=== PATIENT | male | born 1965 | race Caucasian/White ===

== ENCOUNTER 2016-07-18 09:28 | Emergency (ER) | payer MEDICAID ==
[~2016-07-18] VITALS: Ht 180.3 cm; Wt 100.0 kg
[~2016-07-18 09:28] MED LIST: ARIP15TA3 PO; BUPR-93 PO
[2016-07-18] MEDS ORDERED: METHOCARBAMOL 500 MG TABLET PO ONE (12:00)
[2016-07-18] MEDS ORDERED: KETOROLAC TROMETHAMINE 60 MG/2 ML VIAL IM ONE (12:00)
[2016-07-18 12:17] VITALS: BP 133/71
== END 2016-07-18 12:49 | disposition home or self-care (01) ==
LOC: EMS 09:29
DX: S39.012A Strain of muscle, fascia and tendon of lower back, initial encounter (principal); F17.210 Nicotine dependence, cigarettes, uncomplicated; X58.XXXA Exposure to other specified factors, initial encounter; Y93.89 Activity, other specified; Y92.89 Other specified places as the place of occurrence of the external cause; Y99.8 Other external cause status
CPT/HCPCS: 96372; 99283; J1885

== ENCOUNTER 2016-12-04 21:24 | Emergency (ER) | payer MEDICAID ==
[~2016-12-04] VITALS: Ht 182.9 cm; Wt 90.0 kg
[2016-12-05 02:47] LABS: BASOPHILS % (AUTO) 0.5 % (0.0-2.0); EOSINOPHILS % (AUTO) 4.9 % (1.0-6.0); HEMATOCRIT 43.9 % (41-53); LYMPHOCYTES # (AUTO) 2.9 K/uL (1.0-4.8); LYMPHOCYTES % (AUTO) 41.5 % (22.0-44.0); MEAN CORPUSCULAR HGB CONC 34.2 G/dL (31.0-37.0); MEAN CORPUSCULAR VOLUME 93 fL (80-100); MONOCYTES # (AUTO) 0.7 K/uL (0.1-1.0); MONOCYTES % (AUTO) 9.5 % (2.0-9.0); NEUTROPHILS # (AUTO) 3.1 K/uL (1.8-7.7); NEUTROPHILS % (AUTO) 43.6 % (40.0-70.0); PLATELET COUNT (AUTO) 193 K/uL (150-450); RED CELL DISTRIBUTION WIDTH 12.9 % (11.5-14.5); WHITE BLOOD COUNT (AUTO) 7.1 K/uL (4.5-11.0)
[2016-12-05 02:55] LABS: ANION GAP 8 mmol/L (8-16); CALCIUM, TOTAL 8.4 mg/dL (8.8-10.5); CARBON DIOXIDE 29 mmol/L (22-29); CHLORIDE 107 mmol/L (98-107); CREATININE 1.19 mg/dL (0.60-1.30); GLOMERULAR FILTR. RATE CALC > 60 mL/min (>60); POTASSIUM 4.1 mmol/L (3.5-5.1); SODIUM SERUM 144 mmol/L (136-145); UREA NITROGEN, BLOOD 14 mg/dL (7-18)
[2016-12-05 03:00] LABS: ALANINE AMINOTRANSFERASE 37 U/L (12-78); ALBUMIN 3.3 g/dL (3.4-5.0); ASPARTATE AMINOTRANSFERASE 33 U/L (15-37); BILIRUBIN,TOTAL 0.2 mg/dL (0.1-1.0); TOTAL PROTEIN, SERUM 6.2 g/dL (6.4-8.2)
[2016-12-05 03:11] VITALS: BP 124/63
== END 2016-12-05 03:45 | disposition left against medical advice (07) ==
LOC: EMS 21:38
DX: F31.9 Bipolar disorder, unspecified (principal); F20.9 Schizophrenia, unspecified; F17.210 Nicotine dependence, cigarettes, uncomplicated; Z53.21 Procedure and treatment not carried out due to patient leaving prior to being seen by health care provider
CPT/HCPCS: 36415; 80053; 85025; G0480

== ENCOUNTER 2016-12-05 04:31 | Inpatient (IN) | payer MEDICAID ==
[~2016-12-05] VITALS: Ht 180.3 cm; Wt 90.0 kg
[2016-12-05] MEDS ORDERED: PERTUSS(ACELL),DIPH,TET VAC/PF 0.5 ML VIAL IM ONE (08:00)
[2016-12-05] MEDS ORDERED: HALOPERIDOL 5 MG TABLET PO PRN (10:15)
[2016-12-05] MEDS: ARIPiprazole 15 MG TABLET PO SCH (11:11)
[2016-12-05] MEDS: BuPROPion HCL XL 150 MG ER TABLET PO SCH (11:11)
[2016-12-05 16:10] VITALS: BP 117/81
[2016-12-05] MEDS: LORazepam 2 MG TABLET PO PRN (17:11)
[2016-12-05 19:22] VITALS: BP 113/50
[2016-12-06 03:36] VITALS: BP 113/60
[2016-12-06 06:10] LABS: CHOL/HDL RATIO 4.9 (4.2-7.3)
[2016-12-06] MEDS: ARIPiprazole 15 MG TABLET PO SCH (09:05)
[2016-12-06] MEDS: BuPROPion HCL XL 150 MG ER TABLET PO SCH (09:06)
[2016-12-06] MEDS ORDERED: ALBUTEROL SULFATE HFA 90 MCG/PUFF 8 GM INHALER IH PRN (09:15)
[2016-12-06] MEDS ORDERED: ONDANSETRON HCL 4 MG TABLET PO PRN (09:15)
[2016-12-06] MEDS ORDERED: IBUPROFEN 600 MG TABLET PO PRN (09:15)
[2016-12-06] MEDS ORDERED: CloNIDine HCL 0.1 MG TABLET PO PRN (09:15)
[2016-12-06] MEDS ORDERED: LOPERAMIDE HCL 2 MG CAPSULE PO PRN (09:15)
[2016-12-06] MEDS ORDERED: BACITRACIN 28.4 GM OINTMENT TP PRN (09:15)
[2016-12-06] MEDS ORDERED: BENZOCAINE/MENTHOL LOZENGE MM PRN (09:15)
[2016-12-06] MEDS ORDERED: MAGNESIUM HYDROXIDE SUSPENSION 30 ML UDCUP PO PRN (09:15)
[2016-12-06] MEDS ORDERED: PETROLATUM,WHITE 71 GM JELLY TP PRN (09:15)
[2016-12-06] MEDS ORDERED: MAG HYDROX/AL HYDROX/SIMETH ES 30 ML SUSPENSION UDCUP PO PRN (09:15)
[2016-12-06] MEDS ORDERED: ACETAMINOPHEN 325 MG TABLET PO PRN (09:15)
[2016-12-06] MEDS: LORazepam 2 MG TABLET PO PRN (15:08)
[2016-12-06 23:35] VITALS: BP 125/63
[2016-12-07] MEDS: ZOLPIDEM TARTRATE 10 MG TABLET PO PRN ×2 (00:02→20:26)
[2016-12-07] MEDS: LORazepam 2 MG TABLET PO PRN ×2 (00:02→17:10)
[2016-12-07] MEDS: ARIPiprazole 15 MG TABLET PO SCH (08:55)
[2016-12-07] MEDS: NICOTINE 21 MG/24 HOUR PATCH TD SCH (08:55)
[2016-12-07] MEDS: BuPROPion HCL 150 MG SR TABLET PO SCH (08:55)
[2016-12-07 09:14] VITALS: BP 125/71
[2016-12-07 22:00] VITALS: BP 123/61
[2016-12-08 01:35] VITALS: BP 109/73
[2016-12-08 03:55] VITALS: BP 112/64
[2016-12-08] MEDS: LORazepam 2 MG TABLET PO PRN ×2 (03:56→17:32)
[2016-12-08 08:40] VITALS: BP 105/60
[2016-12-08] MEDS: NICOTINE 21 MG/24 HOUR PATCH TD SCH (08:48)
[2016-12-08] MEDS: ARIPiprazole 15 MG TABLET PO SCH (08:48)
[2016-12-08] MEDS: BuPROPion HCL 150 MG SR TABLET PO SCH (08:48)
[2016-12-08 16:13] VITALS: BP 115/80
[2016-12-08] MEDS: ZOLPIDEM TARTRATE 10 MG TABLET PO PRN (21:16)
[2016-12-09 06:31] VITALS: BP 126/69
[2016-12-09] MEDS: ARIPiprazole 15 MG TABLET PO SCH (08:46)
[2016-12-09] MEDS: BuPROPion HCL 150 MG SR TABLET PO SCH (08:46)
[2016-12-09] MEDS: NICOTINE 21 MG/24 HOUR PATCH TD SCH (08:47)
[2016-12-09 08:48] VITALS: BP 109/62
[2016-12-09] MEDS: LORazepam 2 MG TABLET PO PRN ×2 (08:57→18:57)
[2016-12-09 17:13] VITALS: BP 110/64
[2016-12-09] MEDS: ZOLPIDEM TARTRATE 10 MG TABLET PO PRN (20:34)
[2016-12-10 00:43] VITALS: BP 108/61
[2016-12-10] MEDS: NICOTINE 21 MG/24 HOUR PATCH TD SCH (09:09)
[2016-12-10] MEDS: BuPROPion HCL 150 MG SR TABLET PO SCH (09:09)
[2016-12-10] MEDS: ARIPiprazole 15 MG TABLET PO SCH (09:09)
[2016-12-10 09:33] VITALS: BP 131/82
[2016-12-10] MEDS: LORazepam 2 MG TABLET PO PRN (14:07)
[2016-12-10 16:16] VITALS: BP 115/80
[2016-12-10] MEDS: ZOLPIDEM TARTRATE 10 MG TABLET PO PRN (20:43)
[2016-12-11 00:11] VITALS: BP 110/62
[2016-12-11] MEDS: LORazepam 2 MG TABLET PO PRN ×2 (01:50→09:04)
[2016-12-11 08:45] VITALS: BP 110/62
[2016-12-11] MEDS: ARIPiprazole 15 MG TABLET PO SCH (09:03)
[2016-12-11] MEDS: NICOTINE 21 MG/24 HOUR PATCH TD SCH (09:03)
[2016-12-11] MEDS: BuPROPion HCL 150 MG SR TABLET PO SCH (09:03)
[2016-12-11] MEDS ORDERED: BUPR150SR PO (12:16)
[2016-12-11] MEDS ORDERED: ARIP10TA14 PO (12:16)
== END 2016-12-11 14:08 | disposition home or self-care (01) | DRG 750 ==
LOC: EMS 04:32 → AHU 13:30 → B2S 12-06 15:49
PROVIDERS: ADMIT Psychiatry & Neurology Psychiatry; ATTEND Psychiatry & Neurology Psychiatry
PROC: 3E0234Z Introduction of Serum, Toxoid and Vaccine into Muscle, Percutaneous Approach (ICD-10-PCS; principal; 2016-12-05)
DX: F25.0 Schizoaffective disorder, bipolar type (principal); J44.9 Chronic obstructive pulmonary disease, unspecified; R45.851 Suicidal ideations; F15.10 Other stimulant abuse, uncomplicated; F17.210 Nicotine dependence, cigarettes, uncomplicated; G47.00 Insomnia, unspecified; K59.00 Constipation, unspecified; F60.3 Borderline personality disorder; F31.9 Bipolar disorder, unspecified; X78.8XXA Intentional self-harm by other sharp object, initial encounter; Z62.819 Personal history of unspecified abuse in childhood; S61.512A Laceration without foreign body of left wrist, initial encounter; S61.511A Laceration without foreign body of right wrist, initial encounter; Z71.6 Tobacco abuse counseling; Z71.51 Drug abuse counseling and surveillance of drug abuser; Z59.0 Homelessness; Z91.19 Patient's noncompliance with other medical treatment and regimen; Z91.5 Personal history of self-harm; Z79.899 Other long term (current) drug therapy; Z72.89 Other problems related to lifestyle; Z71.41 Alcohol abuse counseling and surveillance of alcoholic; Z81.1 Family history of alcohol abuse and dependence; Z63.8 Other specified problems related to primary support group; Z98.890 Other specified postprocedural states; Y93.89 Activity, other specified; Y92.89 Other specified places as the place of occurrence of the external cause; Y99.8 Other external cause status; Z23 Encounter for immunization
CPT/HCPCS: 87081; 90471; 90715; 99285